=== PATIENT | female | born 1960 | race Caucasian/White ===

== ENCOUNTER → 2024-04-07 18:34 | Outpatient (REF) | payer BC, SELFPAY | LOC: WDC 18:34 | PROVIDERS: ATTENDING PHYSICIAN Nurse Practitioner Family | DX: Z12.31 Encounter for screening mammogram for malignant neoplasm of breast (principal) | CPT/HCPCS: 77063; 77067 ==

== ENCOUNTER 2024-05-25 19:24 | Emergency (ER) | payer BC, SELFPAY ==
[2024-05-25 19:35] VITALS: BP 157/94
[2024-05-25 19:50] LABS: % Basophils 0.4 % (0-2); % Eosinophils 1.5 % (0-6); % Immature Granulocytes 0.3 % (0-0.5); % Lymphocytes 29.5 % (20.5-51.1); % Neutrophils 61.3 % (42.2-75.2); Absolute Eosinophils 0.1 10^3/uL (0-0.7); Absolute Lymphocytes 2.3 10^3/uL (1.2-3.4); Absolute Monocytes 0.5 10^3/uL (0.1-0.6); Absolute Neutrophils 4.8 10^3/uL (1.4-6.5); Hematocrit 38.7 % (37.0-47.0); Hemoglobin 13.1 g/dL (12.0-16.0); Mean Corp Hgb Conc. 33.9 g/dL (33.0-37.0); Mean Corpuscular Hgb 30.4 pg (27.0-31.0); Mean Corpuscular Volume 89.8 fL (81.0-99.0); Mean Platelet Volume 11.4 fL (7.4-10.4); Nucleated Red Blood Cells % 0 %; Platelet Count 197 10^3/uL (130-400); Red Blood Cell Count 4.31 10^6/uL (4.20-5.40); Red Cell Dist. Width 12.1 % (11.5-14.5); White Blood Cell Count 7.8 10^3/uL (4.8-10.8)
[2024-05-25 20:09] LABS: ALT (SGPT) 26 U/L (0-35); AST (SGOT) 33 U/L (14-36); Albumin 4.4 g/dl (3.5-5.0); Alkaline Phosphatase 94 U/L (38-126); Blood Urea Nitrogen 21 mg/dl (7-17); Calcium 9.3 mg/dl (8.4-10.2); Carbon Dioxide 29 mmol/L (22-30); Chloride 103 mmol/L (98-107); Glucose 172 mg/dl (70-99); Potassium 4.5 mmol/L (3.5-5.1); Sodium 144 mmol/L (135-145); Total Bilirubin 0.3 mg/dl (0.2-1.3); Total Protein 7.4 g/dl (6.3-8.2); eGFR > 60.00
[2024-05-25 20:13] LABS: Troponin I < 0.012 ng/ml
[2024-05-25 21:15] VITALS: BMI 34.5
[2024-05-25 22:00] VITALS: BP 124/74
[2024-05-25 23:53] VITALS: BP 146/92
[2024-05-26] VITALS: BP 147/93
--- NOTE | 2024-05-26 00:18 | ED.GENMED ---
History of Present Illness
General
Chief Complaint: Chest Pain
Source: patient and spouse
Exam Limitations: none
Time Seen by Provider: 05/25/24 22:11
Nursing documentation reviewed up to this point in time: agreed with
History of Present Illness
History of Present Illness:
64-year-old female past medical history of hypertension presenting to the emergency department today with concerns of 3 episodes of right-sided chest pain off and on with some degree of shortness of breath over the past few days. No ongoing chest
pain no nausea vomiting fevers or upper respiratory symptoms.
Review of Systems
Review of Systems
Allergies reviewed?: Yes
All Other Systems: ROS reviewed and negative except as documented in HPI and ROS
Phy Exam
Physical Exam
Physical Exam:
GENERAL: Alert , in no apparent distress
EYE: pupils equal and reactive
NECK: Supple, no significant adenopathy.
ENT: o/p clr, mmm.
CARDIAC: Regular rate and rhythm .
LUNGS: Adventitious lung sounds of the right lower lung otherwise remainder of lungs have normal breath sounds bilaterally, no acute respiratory distress, no wheezes/rales/rhonchi
ABDOMEN: Soft, without focal tenderness, no r/g, no cvat
NEUROLOGICAL: Alert and oriented, no focal neuro deficits
SKIN: Warm and dry, skin intact.
MUSCULOSKELETAL: No edema, well perfused.
PSYCH: Normal and appropriate interaction.
Scores
Heart Score for Chest Pain Patients
STEMI patient?: No
History: Slightly or Non-Suspicious
ECG: Normal
Age: >45 - <65 years
Risk Factors: 1 or 2 Risk Factors
Troponin: </= Normal Limit
Heart Score for Chest Pain Patients: 2
Heart Score Risk: 2.5% MACE over next 6 weeks
Course
Orders/Labs/Results
Orders:
Orders
05/25/24 19:28
EKG [Electrocardiogram (*1)] Urgent
Reason for Study: Chest Pain
05/25/24 19:29
EKG- Treatment ONCE
05/25/24 19:44
Complete Blood Count/With Diff Urgent
Comprehensive Metabolic Panel Urgent
Troponin I Urgent
05/25/24 22:11
Chest [CR Chest - 2 Views ] Urgent
Comment:
Reason For Exam: cp
05/26/24 00:19
Amoxicillin [Amoxil] 1,000 mg PO NOW STA
Azithromycin [Zithromax] 500 mg PO NOW STA
Abnormal Lab Results
05/25/24
19:44
MPV 11.4 H fL
(7.4-10.4)
BUN 21 H mg/dl
(7-17)
Glucose 172 H mg/dl
(70-99)
05/25/24 19:44
05/25/24 19:44
Vital Signs
Initial and Last Documented VS:
Initial Vital Signs
Temp Pulse Resp BP Pulse Ox
98.2 F 94 18 157/94 100
05/25/24 19:35 05/25/24 19:35 05/25/24 19:35 05/25/24 19:35 05/25/24 19:35
Last Documented Vital Signs
Temp Pulse Resp BP Pulse Ox
98.2 F 69 17 146/92 96
05/25/24 19:35 05/25/24 23:53 05/25/24 23:53 05/25/24 23:53 05/25/24 22:30
MDM/Problems Addressed
MDM/Problems Addressed:
64-year-old female presenting to the emergency department concerns of chest pain over the past few days. On arrival here vital signs are normal with no white count no fever troponin negative normal chest x-ray showing possible pneumonia. Symptoms
certainly could explain patient's symptoms started on antibiotics advised for close primary care follow-up. Return precautions given.
*Critical Care Note
Total Time (30-74mins, 75-104mins- exclusive of procedures): Not Applicable
ED Attending Note
-
Portions of this chart may have been created with voice recognition software.� Occasional wrong word or��sound alike� substitutions may have occurred due to the inherent limitations of voice recognition software.
Discharge Plan
Departure
Patient Disposition: Home (Routine Discharge)
Date of Disposition: 05/26/24
Time of Disposition: 00:18
Patient with high blood pressure during this ER visit?: No
Condition: Good
Discharge Problem:
Pneumonia
Instructions: Pneumonia, Adult (DC)
Prescriptions:
New
amoxicillin 875 mg tablet
875 mg PO TID 7 Days Qty: 21 0RF
azithromycin 500 mg tablet
500 mg PO DAILY 2 Days Qty: 2 0RF
Referrals:
India Marcelino MD [Family Provider] -
Activity Restrictions/Additional Instructions:
You came to the emergency department today with concerns of chest discomfort. You had a reassuring assessment but potential findings of pneumonia to the right lung. You are started on antibiotics. Please take these as and follow-up closely with
the primary care doctor. Return to the emergency department for any worsening, new or concerning symptoms.
Interventions
Interventions:
*Risk Screen - Suicide Last Done: 05/25/24 19:35
*General Assessment Last Done: 05/25/24 19:35
*Neglect/Abuse Screening Last Done: 05/25/24 19:35
ED- Fall Risk Assessment Last Done: 05/25/24 21:15
*ED COVID-19 Vaccine History Last Done: 05/25/24 19:35
ED- Cardiac Assessment Last Done: 05/25/24 21:15
Discharge Date and Time
Print Language: [id number]
[2024-05-26] MEDS: ZITHROMAX 500 MG PO (00:55)
[2024-05-26] MEDS: AMOXIL 1000 MG PO (00:55)
== END 2024-05-26 01:07 | disposition home or self-care (01) ==
LOC: EMR 19:24
PROVIDERS: Emergency Medicine; EMERGENCY PHYSICIAN Student in an Organized Health Care Education/Training Program; FAMILY PHYSICIAN Family Medicine
DX: J18.9 Pneumonia, unspecified organism (principal); I10 Essential (primary) hypertension; H35.30 Unspecified macular degeneration; Z88.8 Allergy status to other drugs, medicaments and biological substances
CPT/HCPCS: 99283; 71046; 80053; 84484; 85025; 93005

== ENCOUNTER → 2025-04-09 08:00 | Outpatient (REF) | payer BC, SELFPAY | LOC: WDC 08:00 | PROVIDERS: ATTENDING PHYSICIAN Nurse Practitioner Family | DX: Z12.31 Encounter for screening mammogram for malignant neoplasm of breast (principal) | CPT/HCPCS: 77063; 77067 ==